=== PATIENT | male | born 1975 | race Caucasian/White ===

== ENCOUNTER 2017-09-15 08:36 | Emergency (ER) | payer OTHER ==
[~2017-09-15] VITALS: Ht 180.3 cm; Wt 96.6 kg
[2017-09-15 08:36] VITALS: BP_SYST 130
--- NOTE | 2017-09-15 08:38 | NUR ---
Placed in room 3 . Placed on rn cardiac rehab, blood pressure machine and pulse oximeter. To gown for exam. Side rails up. Report given to Joe RODAS.
--- NOTE | 2017-09-15 08:46 | NUR ---
ER Dr. Vela at bedside examining patient.
--- NOTE | 2017-09-15 08:47 | NUR ---
Pt complain of having a sharp pain to left side of chest that started around 0730 this morning. Per patient, he was at work when he felt the sharp pain and started to stress out. Pt states he had taken Advil 10 mg, pain subsided but would come back. Pt denies N/V or shortness of breath. Pt was able to ambulate into ER with at bedside. No other injuries/complaints per patient or noted.
--- NOTE | 2017-09-15 08:48 | NUR ---
Christianne dior in EDM - 09/15/17 at 0902 by [email or web address] ROBERTH Vela at bedside examining patient.
--- NOTE | 2017-09-15 08:50 | NUR ---
Radiology at patient bedside, pt tolerated well.
[2017-09-15 09:21] LABS: BASOPHILS % (AUTO) 0.5 % (0.0-2.0); EOSINOPHILS # (AUTO) 0.2 K/uL (0.0-0.4); EOSINOPHILS % (AUTO) 2.4 % (0.0-4.0); HEMATOCRIT 47.1 % (36-54); HEMOGLOBIN 15.7 g/dL (14.0-18.0); LYMPHOCYTES % (AUTO) 28.3 % (20.5-51.5); MEAN CORPUSCULAR HEMOGLOBIN 29 pg (27-31); MEAN CORPUSCULAR HGB CONC 33 % (32-36); MEAN CORPUSCULAR VOLUME 86 fL (79.0-98.0); MONOCYTES # (AUTO) 0.5 K/uL (0.0-1.0); MONOCYTES % (AUTO) 6.5 % (1.7-9.3); NEUTROPHILS # (AUTO) 4.3 K/uL (1.8-7.7); NEUTROPHILS % (AUTO) 62.3 % (40.0-70.0); PLATELET COUNT (AUTO) 246 K/uL (130-430); RED BLOOD CELL COUNT(AUTO) 5.49 MIL/uL (4.2-6.2); RED CELL DISTRIBUTION WIDTH 11.5 % (9.0-15.0)
[2017-09-15 09:24] LABS: CALCIUM 9.5 mg/dL (8.4-11.0)
[2017-09-15 09:28] LABS: ALBUMIN 4.2 g/dL (3.4-4.8); INR 0.9 (0.80-1.20); PROTHROMBIN TIME 9.6 SECS (9.5-12.5); TOTAL BILIRUBIN 0.4 mg/dL (0.0-1.0)
--- NOTE | 2017-09-15 10:20 | NUR ---
Pt ambulated to restroom and back to bed with no difficulty.
--- NOTE | 2017-09-15 11:58 | NUR ---
Patient given written and verbal discharge instructions and verbalizes understanding. ER MD Vela discussed with patient the results and treatment provided. Patient in stable condition. ID arm band removed. No Rx given. Patient educated on pain management and to follow up with PMD. Pain Scale 0. Opportunity for questions provided and answered.
[2017-09-15 12:02] VITALS: BP_SYST 125
== END 2017-09-15 11:59 | disposition home or self-care (01) ==
LOC: SED 08:36
DX: R07.2 Precordial pain (principal)
CPT/HCPCS: 36415; 71045; 80053; 82550-TC; 83880; 84484; 85025; 85610-TC; 85730-TC; 93005; 99285